=== PATIENT | female | born 1975 | race African-American/Black ===

== ENCOUNTER 2018-10-22 19:05 | Emergency (ER) | payer MEDICAID ==
[~2018-10-22] VITALS: Ht 172.7 cm; Wt 74.8 kg
[2018-10-22 21:09] VITALS: BP 116/72
[2018-10-22] MEDS ORDERED: TRIAMCINOLONE 40MG/ML 1ML VIAL IM ONE (22:15)
== END 2018-10-22 23:00 | disposition home or self-care (01) ==
LOC: ER 19:05
DX: G56.31 Lesion of radial nerve, right upper limb (principal)
CPT/HCPCS: 73130; 96372; 99283; J3301